=== PATIENT | male | born 1985 | race Two or more races ===

== ENCOUNTER 2016-11-04 12:54 | Emergency (ER) | payer SELFPAY ==
[2016-11-04] MEDS ORDERED: IBUPROFEN 800 MG TABLET PO ONE (13:05)
--- NOTE | 2016-11-04 13:05 | ER Document Report ---
ED Medical Screen (RME) - General Stated Complaint: HEADACHE, FEVER Mode of Arrival: Ambulatory Information source: Patient Notes: Patient complains of headache, fever, and sore throat that started yesterday. Patient's child has recently been sick as well. No nausea or vomiting. hx: None I have greeted and performed a rapid initial assessment of this patient. A comprehensive ED assessment and evaluation of the patient, analysis of test results and completion of the medical decision making process will be conducted by additional ED providers. - Related Data Allergies/Adverse Reactions: Penicillins Allergy (Verified 11/04/16 13:04) Past Medical History Pulmonary Medical History: Reports: Hx Asthma - Immunizations Hx Diphtheria, Pertussis, Tetanus Vaccination: Yes Physical Exam - HEENT Pharynx: Erythema. No: Exudate, Potential airway comprom.
[2016-11-04] MEDS ORDERED: AZITHROMYCIN 250 MG TABLET PO ONE (15:46)
[2016-11-04] MEDS ORDERED: PREDNISONE 20 MG TABLET PO ONE (15:49)
--- NOTE | 2016-11-04 15:52 | ER Document Report ---
ED General - General Chief Complaint: Sore Throat Stated Complaint: HEADACHE, FEVER Mode of Arrival: Ambulatory TRAVEL OUTSIDE OF THE [place] IN LAST 30 DAYS: No - HPI Patient complains to provider of: sore throat headache fever Notes: Patient complains of headache, fever, and sore throat that started yesterday. Patient's step child has recently been sick as well. States no chest pain no double pain no nausea no vomiting no diarrhea. No recent antibiotics no recent travel. No other complaints - Related Data Allergies/Adverse Reactions: Penicillins Allergy (Verified 11/04/16 13:04) Past Medical History - General Information source: Patient - Social History Smoking Status: Current Every Day Smoker Family History: Reviewed & Not Pertinent Patient has suicidal ideation: No Patient has homicidal ideation: No Pulmonary Medical History: Reports: Hx Asthma Renal/ Medical History: Denies: Hx Peritoneal Dialysis - Immunizations Hx Diphtheria, Pertussis, Tetanus Vaccination: Yes Review of Systems - Review of Systems Constitutional: Fever EENT: Throat pain Cardiovascular: No symptoms reported Respiratory: No symptoms reported Gastrointestinal: No symptoms reported Genitourinary: No symptoms reported Male Genitourinary: No symptoms reported Musculoskeletal: No symptoms reported Skin: No symptoms reported Hematologic/Lymphatic: No symptoms reported Neurological/Psychological: Headaches -: Yes All other systems reviewed and negative Physical Exam - Vital signs Vitals: Temp Pulse Resp BP Pulse Ox 100.7 F H 89 18 146/84 H 99 11/04/16 13:05 11/04/16 13:05 11/04/16 13:05 11/04/16 13:05 11/04/16 13:05 Interpretation: Normal - General General appearance: Appears well, Alert - HEENT Head: Normocephalic, Atraumatic Eyes: Normal Conjunctiva: Normal Cornea: Normal Pupils: PERRL Ears: Normal External canal: Normal Tympanic membrane: Normal Sinus: Normal Nasal: Normal Pharynx: Erythema Neck: Normal - Respiratory Respiratory status: No respiratory distress Chest status: Nontender Breath sounds: Normal Chest palpation: Normal - Cardiovascular Rhythm: Regular Heart sounds: Normal auscultation Murmur: No - Abdominal Inspection: Normal Distension: No distension Bowel sounds: Normal Tenderness: Nontender Organomegaly: No organomegaly - Back Back: Normal, Nontender - Extremities General upper extremity: Normal inspection, Nontender, Normal color, Normal ROM , Normal temperature General lower extremity: Normal inspection, Nontender, Normal color, Normal ROM , Normal temperature, Normal weight bearing. No: Babar's sign - Neurological Neuro grossly intact: Yes Cognition: Normal Orientation: AAOx4 Ganga Coma Scale Eye Opening: Spontaneous Ganga Coma Scale Verbal: Oriented Ganga Coma Scale Motor: Obeys Commands Ganga Coma Scale Total: 15 Speech: Normal Motor strength normal: LUE, RUE, LLE, RLE Sensory: Normal - Psychological Associated symptoms: Normal affect, Normal mood - Skin Skin Temperature: Warm Skin Moisture: Dry Skin Color: Normal Course - Re-evaluation Re-evalutation: 11/04/16 19:57 Patient presents today with fever sore throat. Group A strep returned positive. Patient will be treated with azithromycin as that he is allergic to penicillin. Patient also be given steroids encouraged to use Tylenol Motrin for pain control drink plenty water to stay hydrated patient was discharged home. - Vital Signs Vital signs: Temp Pulse Resp BP Pulse Ox 98.3 F 71 18 118/71 98 11/04/16 16:34 11/04/16 16:34 11/04/16 13:05 11/04/16 16:34 11/04/16 16:34 Discharge - Discharge Clinical Impression: Strep pharyngitis Condition: Good Disposition: HOME, SELF-CARE Instructions: Strep Throat ([facility]) Additional Instructions: Your throat swabs return positive for strep. Please take the antibiotic as prescribed he will be on azithromycin for the next 5 days. Follow-up with your family physician or clinic provided. I also prescribed. Prednisone a steroid to help decrease inflammation and help with your throat pain. Please continue to take Tylenol and Motrin for pain and fever. Please drink plenty of water to stay hydrated. Prescriptions: Azithromycin 500 mg PO DAILY 5 Days Prednisone [Deltasone 20 mg Tablet] 3 tab PO DAILY 5 Days Forms: Return to Work
[2016-11-04 16:42] VITALS: BP 118/71
== END 2016-11-04 16:43 | disposition home or self-care (01) ==
LOC: ER 12:54
DX: J02.0 Streptococcal pharyngitis (principal); R51 Headache; R50.9 Fever, unspecified; F17.200 Nicotine dependence, unspecified, uncomplicated; Z88.0 Allergy status to penicillin
CPT/HCPCS: 99283; 87880; J7512